=== PATIENT | female | born 1980 | race Two or more races ===

== ENCOUNTER 2024-03-14 07:19 | Emergency (ER) | payer BC, MEDICAID, SELFPAY ==
[2024-03-14 07:20] VITALS: BMI 31.8
[2024-03-14 07:34] VITALS: BP 132/85; PULSE 85; RESP 18; TEMP 36.5; O2SAT 99
--- NOTE | 2024-03-14 07:39 | XR_ITS ---
Examination: PA lateral chest 2 views TECHNIQUE: Upright PA lateral chest 2 views Examination type: March 14, 2024 0748 hours INDICATIONS: Chest pain today FINDINGS: Normal heart size. Lungs are clear. The osseous structures are intact. IMPRESSION: No active disease.
--- NOTE | 2024-03-14 07:39 | EKG_ITS ---
[facility] Test Date: 2024-03-14 Pat Name: JARROD GARG Department: Room: - Gender: Female Family Medicine Physician Assistant: : 1980 Requested By: Ant Johnson ([place]) Order Number: [id number] Reading MD: Ant Johnson (INK TECHNICIAN) Measurements Intervals Mclean Rate: 79 P: 45 NV: 165 QRS: 77 QRSD: 84 T: 67 QT: 361 QTc: 415 Interpretive Statements SINUS RHYTHM Compared to ECG 12/26/2022 13:03:32 No significant changes /store/S0/[id number]/ecg/[id number].pdf
--- NOTE | 2024-03-14 07:40 | PD.EDRME ---
Rapid Medical Screening Exam RME Arrival date/time: 03/14/24 07:19 43-year-old female presents to the emergency department today complaints of epigastric/chest pain Chief Complaint: Abdominal Pain Vital signs: Vital Signs Temperature 97.7 F 03/14/24 07:34 Pulse Rate 85 03/14/24 07:34 Respiratory Rate 18 03/14/24 07:34 Blood Pressure 132/85 H 03/14/24 07:34 Pulse Oximetry (%) 99 03/14/24 07:34 Oxygen Delivery Method Room Air 03/14/24 07:34
[2024-03-14] MEDS: LIDOCAINE VISCOUS 2% 15 ML UDC PO (07:47)
[2024-03-14] MEDS: MG HYD/AL HYD/SIME (Maalox Reg) SUSP 30 ML UDC PO (07:47)
[2024-03-14] MEDS: FAMOTIDINE 20 MG TABLET PO (07:48)
[2024-03-14 08:20] LABS: Collection Type, Urine Clean Catch
[2024-03-14 08:24] LABS: Basophils % (Auto) 0 % (0-2.5); Eosinophils # (Auto) 0.1 Thou/mm3 (0.0-0.5); Eosinophils % (Auto) 1 % (0-10); Hemoglobin 12.1 g/dL (12.0-16.0); Immature Granulocytes % (Auto) 1 % (0-0); Immature Granulocytes Auto 0.14 Thou/mm3 (0.00-0.00); Lymphocytes # (Auto) 1.9 Thou/mm3 (1.0-4.8); Lymphocytes % (Auto) 16 % (10-50); Mean Corpuscular HGB Conc 31.8 g/dl (31.0-37.0); Mean Corpuscular Hemoglobin 25.2 pg (25.0-35.0); Mean Corpuscular Volume 79 fL (80-100); Monocytes # (Auto) 0.7 Thou/mm3 (0.0-0.8); Monocytes % (Auto) 6 % (0-12); Neutrophils # (Auto) 9.2 Thou/mm3 (1.8-7.7); Neutrophils % (Auto) 76 % (37-80); Nucleated Red Blood Cell % 0 /100 WBC (0); Platelet Count 284 Thou/mm3 (140-440); RDW Standard Deviation 41.8 fL (36.4-46.3)
[2024-03-14 08:27] LABS: Bacteria,Urine Rare; Bilirubin,Urine Negative (Negative); Blood,Urine Negative (Negative); Clarity,Urine Clear (Clear/Hazy); Color,Urine Lt-Yellow (Lt Yel-Yel); Culture Indicated,Urine Not Indicated; Glucose, Urine Negative (Negative); Ketones,Urine Negative (Negative); Leukocyte Esterase,Urine Negative (Negative); Nitrite,Urine Negative (Negative); Protein,Urine Negative (Neg - Trace); RBC,Urine 4 /hpf (0-3); Specific Gravity,Urine 1.017 (1.001-1.035); Squamous Epithelial Cell,Urine 3 /hpf (0-5); Urobilinogen,Urine Negative mg/dL (0.0-1.0); WBC,Urine 3 /hpf (0-5)
[2024-03-14 08:28] LABS: HCG Qualitative,Urine Negative
[2024-03-14 08:32] LABS: Amphetamine/Methamp Scrn,U Negative (Negative); Barbiturate Screen,Urine Negative (Negative); Benzodiazepines Screen,Urine Negative (Negative); Benzoylecgonine Screen, Ur Negative (Negative); Fentanyl Screen,Urine Negative (Negative); Opiate Screen,Urine Negative (Negative); THC Screen,Urine Negative (Negative)
[2024-03-14 08:53] LABS: Alanine Aminotransferase 17 U/L (10-49); Albumin, Serum 4.8 gm/dL (3.5-5.0); Albumin/Globulin Ratio 1.5 (1.2-2.2); Alkaline Phosphatase 88 U/L (46-116); Anion Gap 8 (7-16); Aspartate Amino Transferase 11 U/L (0-34); BUN/Creatinine Ratio 20 Ratio (12-20); Bilirubin,Total 0.3 mg/dL (0.3-1.2); Blood Urea Nitrogen 12 mg/dL (9-23); Calcium 9.7 mg/dL (8.3-10.6); Calcium (Corrected) 9.7 mg/dL (8.5-10.1); Carbon Dioxide 30.1 mMol/L (20.0-31.0); Chloride 99 mMol/L (98-107); Creatinine (Component) 0.6 mg/dL (0.6-1.3); Estimated Creatinine Clearance 121.1 mL/min (>60); Globulin 3.1 gm/dL (2.3-3.5); Glucose 105 mg/dL (74-106); Lipase 51 U/L (12-53); Osmolality,Calculated 273 (275-295); Sodium 137 mMol/L (136-145); Total Protein 7.9 gm/dL (5.7-8.2); Troponin I < 0.002 ng/mL (0.0-0.045); eGFR > 60 See Note
[2024-03-14 11:18] VITALS: BP 137/78; PULSE 69; RESP 12; TEMP 36.9; O2SAT 100
--- NOTE | 2024-03-14 11:42 | PD.EDABDPN ---
ED Abdominal Pain RME/HPI General Chief Complaint: Abdominal Pain Stated complaint: UPPER ABD/CHEST PAIN Time seen by provider: 03/14/24 11:17 Arrival date/time: 03/14/24 07:19 This is a 43-year-old female that comes in with complaints of chest pain that started last night. Patient has a history of diabetes, high blood pressure, hyperlipidemia. 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 Patient has a history of and cholecystectomy in the past. Patient feels like her food or things she swallows stays in her stomach. RME / HPI RME / HPI narrative: 03/14/24 07:19 43-year-old female presents to the emergency department today complaints of epigastric/chest pain Related Data Home Medications ?Medication ?Instructions ?Recorded ?Confirmed docusate sodium 100 mg capsule 100 mg PO PRN PRN CONSTIPATION #0 05/30/16 07/14/21 (Colace) caps ferrous sulfate 325 mg (65 mg 325 mg PO BIDWM ANEMIA #0 tabs 05/30/16 07/14/21 iron) tablet (Feosol) methyldopa 500 mg tablet 500 mg PO BID HTN #0 tabs 05/30/16 07/14/21 Previous Rx's ?Medication ?Instructions ?Recorded cefuroxime axetil 500 mg tablet 500 mg PO BID #14 tabs 12/26/22 meclizine 50 mg tablet 50 mg PO BID PRN dizziness #20 tabs 12/26/22 metoclopramide HCl 5 mg tablet 5 mg PO QDAY #10 tabs 03/14/24 (Reglan) Allergies Allergy/AdvReac Type Severity Reaction Status Date / Time albuterol Allergy Intermediate Agitated Verified 03/14/24 07:23 labetalol Allergy Intermediate Agitated Verified 03/14/24 07:23 Review of Systems Review of Systems Systems Reviewed: All systems reviewed, normal except as documented Past Medical History Past Medical History GENITOURINARY: Positive Renal Disease (kikdney infections in past) Social History SMOKING STATUS: Never smoker SUBSTANCE USE: does not use ALCOHOL: Never Travel History EBOLA RISK: No ED Exam General General appearance: Present alert and in no apparent distress Head Head exam: Present atraumatic Eye Eye exam: Present normal appearance, PERRL and EOMI ENT ENT exam: Present normal exam, normal oropharynx and mucous membranes moist Neck Neck exam: Present normal inspection, full ROM and trachea midline Chest Chest inspection: Present normal inspection and symmetric chest wall rise Respiratory Respiratory exam: Present normal lung sounds bilaterally Cardiovascular Cardiovascular exam: Present regular rate, normal rhythm and normal heart sounds Abdominal Exam Abdominal exam: Present soft Extremities Exam Extremities exam: Present normal inspection and full ROM Back Exam Back exam: Present normal inspection and full ROM Neurological Exam Neurological exam: Present alert, oriented X3 and CN II-XII intact Psychiatric Psychiatric exam: Present normal affect and normal mood Skin Skin exam: Present warm, dry, intact and normal color Course Quality Measures none Orders Category Date Time Status EKG (ED ONLY) *Do not use* NOW Care 03/14/24 07:40 Completed EKG (ED Only) Stat Exams 03/14/24 07:39 Draft XR chest 2V Stat Exams 03/14/24 07:39 Completed CBC Stat Lab 03/14/24 08:04 Completed Comprehensive Metabolic Panel Stat Lab 03/14/24 08:04 Completed Drug Screen,Urine Stat Lab 03/14/24 08:05 Completed HCG Qualitative,Urine Stat Lab 03/14/24 08:05 Completed Lipase Stat Lab 03/14/24 08:04 Completed Troponin I Stat Lab 03/14/24 08:04 Completed UA, C/S IF [Urinalysis, C/S if Indicated] Stat Lab 03/14/24 08:05 Completed Famotidine [Pepcid] Med 03/14/24 07:39 Discontinued 20 mg PO X1 ONE Ketorolac Inj [Toradol Inj] Med 03/14/24 11:41 Discontinued 60 mg IM X1 ONE Lidocaine 2% Viscous [Xylocaine 2% Viscous] Med 03/14/24 07:39 Discontinued 15 ml PO X1 ONE Metoclopramide Inj [Reglan Inj] Med 03/14/24 11:41 Discontinued 10 mg IM X1 ONE mg Hyd/Al Hyd/Gabriela Susp [Maalox Susp] Med 03/14/24 07:39 Discontinued 30 ml PO X1 ONE Vital Signs Vital signs: Vital Signs Temperature 97.7 F 03/14/24 07:34 Pulse Rate 85 03/14/24 07:34 Respiratory Rate 18 03/14/24 07:34 Blood Pressure 132/85 H 03/14/24 07:34 Pulse Oximetry (%) 99 03/14/24 07:34 Oxygen Delivery Method Room Air 03/14/24 07:34 Procedures -ED EKG Interpretation #1: Date of EK03/14/24 Time of EK:46 Rate: 79 Interpretation: Interpreted by me (sinus rhythm) EKG Impression: No ectopy, Normal QRS and Normal intervals Abdominal Pain MDM MDM Narrative MDM Narrative:: Chest x ray: FINDINGS: Normal heart size. Lungs are clear. The osseous structures are intact. IMPRESSION: No active disease. Patient labs were unremarkable. I spoke to patient at length history she has had issues in the past with gastric motility and per patient has done barium swallows in the past. Patient states that they never tell her anything. I looked over patient's medications. Patient takes Rybelsus for her diabetes. explained to her that Rybelsus can cause dilation including slow gastric emptying. I told her that this can be causing her pain and sometimes feeling full in her stomach. I told her to follow-up with primary provider and maybe switch her medications if possible. Patient comfortable with plan of care. Patient states that GI cocktail really did not help her. Patient denies any urinary symptoms. Patient told to come back to the emergency room if symptoms change or worsen. Patient data External records reviewed:: [facility] previous records Clinical information provided by:: patient Social determinants that could affect healthcare access:: none Patient has the following chronic illnesses:: see note How is presenting disease/condition affected by chronic disease/condition?: exacerbated by Evaluation data The following diagnostics were reviewed and interpreted by me:: lab results and radiology exam(s) Lab and/or radiology exams considered but not ordered:: none Interpretation Summary: seenote Medications / Prescriptions Medications or Prescriptions considered but not ordered:: none Medication administrations:: Medication Administration History Discontinued Medications Al Hydrox/Mg Hydrox/Simethicone (Mg Hyd/Al Hyd/Gabriela (Maalox Reg) Susp 30 Ml Udc) 30 ml PO X1 ONE Stop: 03/14/24 07:40 Last Admin: 03/14/24 07:47 Dose: 30 ml Documented By: DO Famotidine (Famotidine 20 Mg Tablet) 20 mg PO X1 ONE Stop: 03/14/24 07:40 Last Admin: 03/14/24 07:48 Dose: 20 mg Documented By: DO Comments: unable to scan Ketorolac Tromethamine (Ketorolac Inj 60 Mg/2 Ml Vial) 60 mg IM X1 ONE Stop: 03/14/24 11:42 Last Admin: 03/14/24 11:48 Dose: 60 mg Documented By: AM Lidocaine HCl (Lidocaine Viscous 2% 15 Ml Udc) 15 ml PO X1 ONE Stop: 03/14/24 07:40 Last Admin: 03/14/24 07:47 Dose: 15 ml Documented By: DO Metoclopramide HCl (Metoclopramide Inj 5 Mg/Ml Vial 2 Ml) 10 mg IM X1 ONE; Protocol Stop: 03/14/24 11:42 Last Admin: 03/14/24 11:49 Dose: 10 mg Documented By: AM see mar Consultations Consultation(s) initiated? (list below): No Diagnosis Differential diagnosis abdominal pain: abdominal pain, calculus of kidney, constipation, gastroenteritis and other (uti) Most likely diagnosis given after review of the tests above:: abdominal pain likely medication induced Admission Indicated Admission indicated?: not indicated Admission Request Was there a request for admission?: No Disposition Plan Disposition Plan: Discharge Discharge Attestation Discharge Attestation: The patient and all family members were given an opportunity to ask questions and understood the discharge instructions. Discharge instructions specifically effects, indications for sooner follow up or return to the emergency department, and the expected course of current diagnosis. Patient condition: Stable Discharge Plan Plan Patient Disposition: HOME (Self Care) Patient condition on transfer: Stable Prescriptions/Referrals Prescriptions/Med Rec: New metoclopramide HCl [Reglan] 5 mg tablet 5 mg PO QDAY Qty: 10 0RF No Action methyldopa 500 MG tablet 500 mg PO BID Qty: 0 docusate sodium [Colace] 100 MG capsule 100 mg PO PRN PRN (Reason: CONSTIPATION) Qty: 0 ferrous sulfate [Feosol] 1 TAB tablet 325 mg PO BIDWM Qty: 0 cefuroxime axetil 500 mg tablet 500 mg PO BID Qty: 14 0RF meclizine 50 mg tablet 50 mg PO BID PRN (Reason: dizziness) Qty: 20 0RF Referrals: Anastacia Ramirez FNP [Primary Care Provider] - In 1 week Problem List Clinical Impression: Abdominal pain Patient/Caregiver Discharge Instructions Discharge Activity: activity as tolerated Education Materials: Abdominal Pain Additional Instructions: Follow up with primary provider in 1-2 days. Come back to ED if symptoms change or worsen. Print Language: [place] Zealander Stand Alone Forms: Prachi Award Info., Patient Portal Info Letter PA/DIRECTOR [employer] SALES Supervising Physician PA/DIRECTOR [employer] SALES Supervising Physician: carl
[2024-03-14] MEDS: KETOROLAC INJ 60 MG/2 ML VIAL IM (11:48)
[2024-03-14] MEDS: METOCLOPRAMIDE INJ 5 MG/ML VIAL 2 ML 10 MG IM (11:49)
[2024-03-14 11:56] VITALS: BP 137/78; PULSE 65; RESP 20; O2SAT 99
[2024-03-14 12:18] VITALS: BP 105/58; PULSE 69; RESP 16; TEMP 36.9; O2SAT 100
[2024-03-14 12:42] VITALS: PULSE 71; RESP 14; O2SAT 100
== END 2024-03-14 12:43 | disposition home or self-care (01) ==
PROVIDERS: Nurse Practitioner Primary Care; Emergency Provider Emergency Medicine; PCP Registered Nurse Community Health
DX: R10.13 Epigastric pain (principal); R07.9 Chest pain, unspecified; E11.9 Type 2 diabetes mellitus without complications; E78.5 Hyperlipidemia, unspecified; Z90.49 Acquired absence of other specified parts of digestive tract
CPT/HCPCS: 36415; 71046; 80053; 80307; 81001; 81025; 83690; 84484; 85025; 96372; 99283; J1885; J2765; J3490; A9270